=== PATIENT | male | born 1965 | race Caucasian/White ===

== ENCOUNTER 2018-07-14 13:10 | Outpatient (REF) | payer OTHER, SELFPAY ==
[2018-07-14 21:25] LABS: Anion Gap 9.7 mmol/L (3-11); BUN 21 mg/dL (7-18); CO2 28.3 mmol/L (21.0-32.0); CREATININE 0.96 mg/dL (0.70-1.30); Calcium 9.2 mg/dL (8.5-10.1); Chloride 105 mmol/L (98-107); Glucose 106 mg/dL (70-100); Potassium 4.3 mmol/L (3.5-5.1); Sodium 143 mmol/L (136-145)
== END 2018-07-14 13:30 ==
LOC: NCHCN 13:10
PROVIDERS: PCP Internal Medicine; Visit Provider Internal Medicine
DX: I10 Essential (primary) hypertension (principal)
CPT/HCPCS: 80048

== ENCOUNTER 2019-02-06 10:15 | Outpatient (REF) | payer OTHER, SELFPAY ==
[2019-02-06 20:28] LABS: Anion Gap 7.1 mmol/L (3-11); BUN 16 mg/dL (7-18); CO2 30.9 mmol/L (21.0-32.0); CREATININE 0.89 mg/dL (0.70-1.30); Calcium 8.8 mg/dL (8.5-10.1); Chloride 102 mmol/L (98-107); Glucose 113 mg/dL (70-100); Potassium 3.6 mmol/L (3.5-5.1); Sodium 140 mmol/L (136-145)
== END 2019-02-06 10:35 ==
LOC: NCHCN 10:15
PROVIDERS: PCP Internal Medicine; Visit Provider Internal Medicine
DX: I10 Essential (primary) hypertension (principal)
CPT/HCPCS: 80048

== ENCOUNTER 2020-04-29 13:24 | Outpatient (REF) | payer BC, SELFPAY ==
[2020-04-29 21:39] LABS: ALT 53 U/L (16-63); AST 29 U/L (15-37); Alkaline Phosphatase 80 U/L (46-116); Anion Gap 7.2 mmol/L (3-11); BUN 20 mg/dL (7-18); Bilirubin, Total 1.1 mg/dL (0.2-1.0); CO2 26.8 mmol/L (21.0-32.0); CREATININE 0.94 mg/dL (0.70-1.30); Calcium 8.9 mg/dL (8.5-10.1); Calculated LDL 138 mg/dL (<100); Chloride 101 mmol/L (98-107); Cholesterol 197 mg/dL (<200); Glucose 123 mg/dL (74-106); HDL Cholesterol 36 mg/dL (40-60); Potassium 3.7 mmol/L (3.5-5.1); Sodium 135 mmol/L (136-145); Total Protein 7.1 g/dL (6.4-8.2); Triglyceride 115 mg/dL (<150)
== END 2020-04-29 13:44 ==
LOC: NCHCN 13:24
PROVIDERS: PCP Internal Medicine; Visit Provider Internal Medicine
DX: I10 Essential (primary) hypertension (principal); Z13.220 Encounter for screening for lipoid disorders; E66.9 Obesity, unspecified
CPT/HCPCS: 80053; 80061

== ENCOUNTER 2021-03-28 08:09 | Outpatient (REF) | payer MEDICAID, SELFPAY ==
[2021-03-28 13:51] LABS: ALT 45 U/L (16-63); AST 26 U/L (15-37); Albumin 3.8 g/dL (3.4-5.0); Alkaline Phosphatase 96 U/L (46-116); Anion Gap 11.5 mmol/L (3-11); BUN 15 mg/dL (7-18); Bilirubin, Total 0.6 mg/dL (0.2-1.0); CO2 25.5 mmol/L (21.0-32.0); Calcium 8.4 mg/dL (8.5-10.1); Calculated LDL 138 mg/dL (<100); Chloride 105 mmol/L (98-107); Cholesterol 207 mg/dL (<200); Glucose 118 mg/dL (74-106); HDL Cholesterol 32 mg/dL (40-60); Potassium 3.7 mmol/L (3.5-5.1); Sodium 142 mmol/L (136-145); Total Protein 6.9 g/dL (6.4-8.2); Triglyceride 187 mg/dL (<150)
[2021-03-28 14:57] LABS: Hemoglobin A1C 5.7 % (<5.7)
== END 2021-03-28 08:10 | disposition home or self-care (01) ==
LOC: NCHCN 08:09
PROVIDERS: PCP Internal Medicine; Visit Provider Internal Medicine
DX: R73.03 Prediabetes (principal); I10 Essential (primary) hypertension; E78.5 Hyperlipidemia, unspecified
CPT/HCPCS: 80053; 80061; 83036

== ENCOUNTER 2021-06-07 01:59 | Outpatient (CLI) | payer MEDICAID, SELFPAY ==
[2021-06-07 21:44] LABS: COVID-19 RT-PCR UVMMC Result Negative (Negative)
== END 2021-06-07 02:00 | disposition home or self-care (01) ==
PROVIDERS: PCP Internal Medicine; Visit Provider Internal Medicine
DX: Z20.822 Contact with and (suspected) exposure to COVID-19 (principal)
CPT/HCPCS: U0003

== ENCOUNTER 2021-10-05 18:07 | Emergency (ER) | payer MEDICAID, SELFPAY ==
[2021-10-05 18:10] VITALS: BP 143/83; PULSE 77; RESP 23; TEMP 37.1; O2SAT 98
--- NOTE | 2021-10-05 18:15 | DI.CT_ITS ---
Exam(s) CT ABDOMEN PELVIS W EXAM: CT ABDOMEN PELVIS W CLINICAL HISTORY: left lower quadrant pain TECHNIQUE: Imaging Protocol: Axial computed tomography images with coronal and sagittal reformatted images were created and reviewed CONTRAST MATERIAL: Intravenous: Omnipaque 350 Contrast volume:100 mL Oral: No COMPARISON: No exams were available for comparison FINDINGS: ABDOMEN: Lung Bases: Normal where visualized. Liver: There is diffuse decreased attenuation of the liver suggesting fatty infiltration. No measura ble mass. Portal, Superior Mesenteric, and Splenic Veins: Unremarkable. Gallbladder and Biliary Tract: No radiodense calculus or dilation. Pancreas: Normal density, no abnormal calcifications or inflammatory process. Spleen: Normal. Adrenals: No masses seen. Kidneys: Normal size, contour and axis. There is a 4 mm stone at the left UVJ with mild hydronephrosi s. No masses seen. Abdominal Aorta: Abdominal portion non-dilated. Atherosclerosis. Bowel: No obstruction or bowel wall thickening. No evidence of appendicitis. Peritoneal Cavity: No ascites, collection or mesenteric inflammatory response. No free air. Lymph Nodes: Within normal limits. Bones: Within normal limits for the patient's age. Soft Tissues: Bilateral fat containing inguinal hernia are present. PELVIS: Bladder: Symmetric distention, no gross wall thickening. Reproductive Organs: Unremarkable as visualized. Lymph Nodes: Within normal limits. Bones: Within normal limits for the patient's age. IMPRESSION: There is a 4 mm left UVJ stone causing mild hydronephrosis and hydroureter. RADIATION DOSE DELIVERED: 1,517.98mGy.cm Total DLP DATA REPOSITORY: All CT scans at this facility are submitted to the National Radiology Data Registry (NRDR) Dose Index Registry (DIR) with the [employer] (A[employer]). RADIATION OPTIMIZATION: All CT scans at this facility use at least one of these dose optimization te chniques: automated exposure control; mA and/or kV adjustment per patient size (includes targeted exa ms where dose is matched to clinical indication); or iterative reconstruction.
--- NOTE | 2021-10-05 18:23 | ED.GENADUL_ITS ---
Discharge Plan Disposition Patient Disposition: HOME Condition: Improving Discharge Details Clinical Impression: Left ureteral stone Primary Care Provider: Edi Pemberton ED Provider: Silvreio Shane Home Meds and New Rx's Prescriptions: New tamsulosin 0.4 mg capsule 0.4 mg PO QHS Qty: 10 RF: 0 Continued OxyContin 10 MG tablet extended release 12 hr 10 mg PO BID RF: 0 amlodipine 10 mg Tablet 10 mg PO DAILY RF: 0 escitalopram oxalate 10 mg Tablet 10 mg PO DAILY RF: 0 calcium carb-D3-mag ox-zinc ox 333 mg-133 unit -133 mg-5 mg Tablet 1 tab PO DAILY RF: 0 niacin 500 mg Capsule 500 mg PO DAILY RF: 0 turmeric 400 mg Capsule 400 mg PO BID RF: 0 omega 2-sax-nqu-fish oil 650 mg-240 mg- 360 mg-1,000 mg Capsule,Delayed Release(Dr/Ec) 1 cap PO DAILY RF: 0 Discharge Instructions Instructions: Ureteral Stones (ED) Additional Instructions: Small distal stone which should pass on its own. Take Tylenol 1 gram every 6 hours and use oxycodone for breakthrough pain. Contact you prescriber/pain management to discuss needing extra dosing. Retrun to ED for fever, uncont rolled pain, persistent vomiting. Follow up with urology next week if no passage of stone over the weekend. Referrals: [facility] [Provider Group] Medical Decision Making <Pj Recinos MD - Last Filed: 10/05/21 18:28> 56 yo male with complex regional pain syndrome on oxycodone daily and states a p rior history years ago of kidney stones comes in with ems with left lower oblique/abdominal pain that started around 1pm today while he was making potato salad. He has had nausea and dry heaves as well. He denies fevers, chest pain, dyspnea, headaches. HE has no scrotal swelling or tenderness. He has no cva tenderness, does have tenderness with palpation to the left lower abdomen, no other abodminal tenderness. Concern for diverticulitis vs kidney stone, will obtain labs including cbc, cmp, lipase and obtain ct to further evaluate Differential Diagnosis Differential Diagnosis: kidney stone, diverticulitis, muscle spasm <Silverio Shane MD - Last Filed: 10/05/21 22:52> Patient signed out to me pending CT scan. Laboratory studies unremarkable except for urine with greater than [address] scan confirms distal ureteral stone. There is some hydroureter/hydronephrosis. Stone is 3 x 3 and should pass based on size. Will start on Flomax. Patient does not tolerate nonsteroidals. Recommend acetaminophen every 6 hours with use of his chronic oxycodone. He has a narcotic contract and I have asked him to contact that provider in the morning to discuss possibility of decreasing time interval as he is only supposed to be taking oxycodone twice a day. Because of the contract I will not prescribe any narcotics and discussed this with the patient. Will refer patient to urology for follow-up per his and his request. Return to ED for fever, uncontrolled pain, persistent vomiting, other concerns. Lab Data Lab results reviewed: Yes I reviewed the patient's lab results. HPI <Pj Recinos MD - Last Filed: 10/05/21 18:28> General Mode of arrival: EMS . Date/Time Provider Initiated Documentation: 10/05/21 18:07 . Limitations to Documentation: no limitations . Information obtained by: patient . History of Present Illness 56 year old M presents to the emergency department with the chief complaint of left flank/abdomen pain, described as moderate, Quality is described as stabbing, and is localized to the abdomen. Patient reports no radiation. Patient started experiencing this hour(s) (4) and it has been constant. No relieving factors improve symptom(s), No exacerbating factors reported . Patient notes nausea/vomiting. Patient did receive the following treatments prior to arrival, none Related Data Home Medications Medication Instructions Recorded Confirmed OxyContin 10 mg PO BID 11/29/14 10/05/21 amlodipine 10 mg PO DAILY 10/05/21 10/05/21 calcium carb-D3-mag ox-zinc ox 1 tab PO DAILY 10/05/21 10/05/21 escitalopram oxalate 10 mg PO DAILY 10/05/21 10/05/21 niacin 500 mg PO DAILY 10/05/21 10/05/21 omega 9-vwt-znx-fish oil 1 cap PO DAILY 10/05/21 10/05/21 tamsulosin 0.4 mg PO QHS #10 cap 10/05/21 turmeric 400 mg PO BID 10/05/21 10/05/21 Previous Rx's Medication Instructions Recorded tamsulosin 0.4 mg PO QHS #10 cap 10/05/21 Allergies Allergy/AdvReac Type Severity Reaction Status Date / Time venom-wasp [Wasp Venom] Allergy Intermediate Unverified 10/05/21 18:17 gabapentin [From Neurontin] Allergy Mild Skin Rash Unverified 10/05/21 18:17 pregabalin [From Lyrica] Allergy Mild Agitation Unverified 10/05/21 18:17 naproxen [From Naprosyn] AdvReac Mild Unverified 10/05/21 18:17 amitryptiline Allergy Intermediate Agitation Uncoded 10/05/21 18:17 fentanyl Allergy Intermediate hallucinati Uncoded 10/05/21 18:17 ons General Stated Complaint: FlankPain MARIE: 3 Review of Systems <Pj Recinos MD - Last Filed: 10/05/21 18:28> All systems reviewed & are unremarkable except as noted in HPI and below Constitutional Constitutional: Denies chills, Denies fever(s) and Denies weakness Cardiovascular Cardiovascular: Denies chest pain and Denies dyspnea Respiratory Respiratory: Denies cough and Denies dyspnea Neurologic Neurologic: Denies weakness PFSH <Pj Recinos MD - Last Filed: 10/05/21 18:28> All Active Problems (Updated 10/05/21 @ 20:51 by Silverio Shane MD) Left ureteral stone (Acute) Social History Smoking/Tobacco Use Status: Former Tobacco Use Smoking risk assessment performed?: Yes Alcohol Intake: current Alcohol Intake frequency: a few times a month Alcohol type: beer Drug use: Daily Substance use type: marijuana Do you feel safe at home: Yes Do you feel safe in your relationship?: Yes Exam <Pj Recinos MD - Last Filed: 10/05/21 18:28> Const General: no acute distress Orientation: alert [facility] Head: normal to inspection Ears: external ears normal General nose exam: external nose normal Mouth: moist mucous membranes Eyes General: appearance normal, both eyes and all related structures Neck Neck: normal visual inspection Resp Effort & Inspection: normal respiratory effort and able to speak in complete sentences Cardio Rate: regular rate GI Palpation: soft and tender Back/Spine/Pelvis Back: no CVA tenderness Skin General skin exam: no rashes or lesions noted Neuro General: patient alert and patient oriented x3 Extrem General: normal to inspection Psych Mental Status: mental status grossly normal Course <Pj Recinos MD - Last Filed: 10/05/21 18:28> Vital Signs Vital signs: Vital Signs Temperature 37.1 C 10/05/21 18:10 Pulse 77 10/05/21 18:10 Respiratory Rate 23 10/05/21 18:10 Blood Pressure 143/83 H 10/05/21 18:10 Pulse Oximetry 98 10/05/21 18:10 Temperature 37.1 C 10/05/21 18:10 Temperature Source Temporal Artery Scan 10/05/21 18:10 Pulse 77 10/05/21 18:10 Respiratory Rate 23 10/05/21 18:10 Respiratory Effort 10/05/21 18:14 Blood Pressure 143/83 H 10/05/21 18:10 Blood Pressure Position Supine 10/05/21 18:10 Pulse Oximetry 98 10/05/21 18:10 Oxygen Delivery Method Room Air 10/05/21 18:10 Oxygen Flow Rate 0 10/05/21 18:10 Pain Level 8 10/05/21 18:10 Sign Out <Pj Recinos MD - Last Filed: 10/05/21 18:28> Sign Out Data: Sign Out Comment: left lower abdomen/oblique pain, pending CT scan results and reassessment Last updated by Pj Recinos MD at 10/05/21 19:05 PAWSS <Pj Recinos MD - Last Filed: 10/05/21 18:28> Have you Been Recently Intoxicated or Drunk Within the Last 30 days?: No Have you Ever Experienced Previous Episodes of Alcohol Withdrawal?: No Have you ever Experienced Withdrawal Seizures?: No Have you ever Experienced Delirium Tremens(DT)s?: No Have you ever undergone Alcohol Rehabilitation Treatment (i.e, inpt ot outpatient treatment programs)?: No Have you ever Experienced Blackouts?: No Have you ever Combined Alcohol with other Downers within the last 90 days?: No Have you ever Combined Alcohol with any other Substance of Abuse during the last 90 days?: No Positive Blood Alcohol level on Presentation? [PCS.BAL]: No Evidence of Increased Autonomic Activity (i.e. HR>120, tremor, sweating, agitation, nausea)?: No Result: 0
[2021-10-05 18:24] LABS: Abs Immature Grans 0.03 10^3/uL (0.0-0.06); Absolute Basophil Count 0.05 10^3/uL (0.0-0.2); Absolute Eosinophil Count 0.05 10^3/uL (0.0-0.7); Absolute Lymphocyte Count 1.16 10^3/uL (1.2-3.4); Absolute Monocyte Count 0.55 10^3/uL (0.1-0.8); Absolute Neutrophil Count 8.35 10^3/uL (1.2-6.7); Basophils % 0.5; Eosinophils % 0.5; HCT 44.6 % (40.0-50.0); HGB 15.5 g/dL (13.5-17.5); Immature Grans % 0.3; Lymphocytes % 11.4; MCH 30.9 pg (27.0-33.0); MCHC 34.8 % (32.0-36.0); MCV 88.8 fL (80-95); MPV 9.6 fL (8.0-11.0); Monocytes % 5.4; Neutrophils % 81.9; Nucleated RBC 0 %; Platelet Count 199 10^3/uL (130-400); RBC 5.02 10^6/uL (4.36-5.78); RDW 11.9 % (11.8-14.1); RDW-SD 38.6 fL; WBC 10.19 10^3/uL (4.4-10.8)
[2021-10-05] MEDS: Normal Saline 1,000 ML 1000 ML IV (18:25)
[2021-10-05 18:36] LABS: ALT 38 U/L (16-63); AST 19 U/L (15-37); Albumin 3.9 g/dL (3.4-5.0); Alkaline Phosphatase 84 U/L (46-116); Anion Gap 10.4 mmol/L (3-11); BUN 20 mg/dL (7-18); Bilirubin, Direct 0.1 mg/dL (0.0-0.2); Bilirubin, Total 0.4 mg/dL (0.2-1.0); CO2 26.6 mmol/L (21.0-32.0); CREATININE 1.3 mg/dL (0.70-1.30); Calcium 8.7 mg/dL (8.5-10.1); Chloride 102 mmol/L (98-107); Estimated GFR 57.31 (mL/min/1.73m2); Glucose 162 mg/dL (74-106); Lipase 51 U/L (73-393); Magnesium 2.1 mg/dL (1.8-2.4); Potassium 3.4 mmol/L (3.5-5.1); Sodium 139 mmol/L (136-145); Total Protein 7.2 g/dL (6.4-8.2)
[2021-10-05] MEDS: HYDROmorphone 2 MG/ML VIAL 1 MG IVP ×2 (18:53→21:02)
[2021-10-05 19:06] LABS: Bilirubin Negative (Negative); Blood Large (Negative); Clarity Sl Cloudy (Clear); Glucose Negative (Negative); Ketones Negative (Negative); Leukocyte Esterase Negative (Negative); Nitrite Negative (Negative); Urobilinogen 0.2 EU/dL (Up TO 0.2)
[2021-10-05 19:12] LABS: Bacteria Negative HPF (Negative); C & S Indicated? No; Casts Negative LPF (Negative); Crystals Negative HPF (Negative); Epithelial Cells Few HPF (Negative); Mucus Negative (Negative); RBC >50 HPF (0-2); WBC 0-2 HPF (0-5)
[2021-10-05 19:18] LABS: Source Nasal/Nares
[2021-10-05] MEDS: Omnipaque 350 MG/ML 100 ML BTL IJ (19:36)
[2021-10-05 20:09] LABS: COVID-19 PCR Negative (Negative)
--- NOTE | 2021-10-05 20:38 | DI.VRAD_ITS ---
PROCEDURE INFORMATION: Exam: CT Abdomen And Pelvis With Contrast Exam date and time: 10/05/2021 6:23 PM Age: 56 years old Clinical indication: Other: Llq pain TECHNIQUE: Imaging protocol: Computed tomography of the abdomen and pelvis with contrast. COMPARISON: No relevant prior studies available. FINDINGS: Liver: Normal. No mass. Gallbladder and bile ducts: Normal. No calcified stones. No ductal dilation. Pancreas: The pancreas is mildly atrophic, but otherwise appears unremarkable without focal lesion or evidence of acute inflammation. Spleen: Normal. No splenomegaly. Adrenal glands: There is diffuse bilateral nonspecific mild adrenal enlargement, suggesting hyperplasia. Kidneys and ureters: There is a 3 x 3 x 2 mm distal left ureteral stone in the region of the left ureterovesical junction, as seen on image 83, series 4 as well as coronal image 91, series 6. There is mild proximal left hydroureter and left hydronephrosis. There is mild asymmetric fluid stranding around the left kidney. Stomach and bowel: There is no evidence of small or large bowel inflammation. There is no evidence for bowel obstruction. Appendix: No evidence of appendicitis. Intraperitoneal space: Unremarkable. No free air. No significant fluid collection. Vasculature: The aorta and iliac arteries demonstrate mild atherosclerotic calcification without aneurysm formation. Lymph nodes: Unremarkable. No enlarged lymph nodes. Urinary bladder: No bladder stones are identified. Reproductive: Unremarkable as visualized. Bones/joints: There is moderate facet arthrosis at L4-L5. There is multilevel mild spondylosis of the lower thoracic and lumbar spine. No acute fractures are identified. Soft tissues: There are fat containing bilateral inguinal hernias, left greater than right, with the left hernia extending into the superior aspect of the left scrotum, only partially imaged. The left hernia measures up to 3.1 x 6.8 x 10 cm. IMPRESSION: 1. Obstructing 3 x 3 x 2 mm distal left ureteral stone residing in the region of the left ureterovesical junction, with associated mild proximal left hydroureter and left hydronephrosis. 2. Bilateral fat containing inguinal hernias. Dictated and Authenticated by: Howie Ortiz MD. Ordering:GERARD Oliva MD
[2021-10-05] MEDS: Tamsulosin 0.4 MG CAPCR PO (21:02)
--- NOTE | 2021-10-06 08:12 | NUR.NOTE ---
negative covid result relayed to pt via phone. Nursing Note:
== END 2021-10-05 21:00 | disposition home or self-care (01) ==
PROVIDERS: Emergency Medicine; Emergency Provider Emergency Medicine; PCP Internal Medicine
DX: N20.1 Calculus of ureter (principal); Z87.442 Personal history of urinary calculi
CPT/HCPCS: 36415; 80053; 83690; 87635; 96374; 96376; 99285; 74177; 81003; 81015; 82248; 83735; 85025; 99284; J3490

== ENCOUNTER 2021-11-03 11:47 | Outpatient (REF) | payer MEDICAID, SELFPAY ==
--- OUTSIDE RECORDS SUMMARY | 2021-11-03 11:49 | XMS_ITS ---
:1965 External Reference #:[id number] Author Care Team Providers Name Role Phone [facility] Primary Care Provider Unavailable Allergies Code Code System Name Reaction Severity Status Onset 704 RxNorm Amitriptyline ? ? Active ? 4337 RxNorm Fentanyl ? ? Active ? 01987 RxNorm Gabapentin ? ? Active ? 6130 RxNorm Ketamine ? ? Active ? 151176 RxNorm Lyrica Other ? Active ? 850063 RxNorm Venom-honey Bee ? ? Active ? Medications Name Status Start Date Stop Date ? ? aspirin Active ? Not available 81mg atenolol 25 mg tablet Active ? Not availa ble Take 1 tablet every day by oral route. oxycodone 10 mg tablet Active ? Not avail able Take 1 tablet every 4 hours by oral route. OxyContin 10 mg tablet,crush Active ? Not available resistant,extended release Problems None recorded. Procedures None recorded. Results Lab Results None recorded. Past Encounters None recorded. Social History None recorded. Vaccine List None recorded. Plan of Care Reminders Provider Appointments None ? ? recorded. Lab None ? ? recorded. Referral None ? ? recorded. Procedures None ? ? recorded. Surgeries None ? ? recorded. Imaging None ? ? recorded. Vitals 09/04/2016 09:15AM ESTABLISHED PATIENT 46 Height Weight BMI Blood Pressure 5 ft 8 in 225 lbs 12.8 oz 34.3 kg/m2 146/90 mm[Hg] 07/19/2016 09:00AM ESTABLISHED PATIENT 30 Height Weight BMI 5 ft 8 in 227 lbs 34.5 kg/m2 05/08/2016 02:00PM ESTABLISHED PATIENT 46 Weight Blood Pressure 226 lbs 130/82 mm[Hg] 03/23/2016 03:00PM ESTABLISHED PATIENT 30 Weight Blood Pressure 232 lbs 130/90 mm[Hg] 02/02/2016 09:00AM ESTABLISHED PATIENT 61 Weight Blood Pressure 239 lbs 130/90 mm[Hg] 01/05/2016 04:30PM NEW PATIENT 89 Weight Blood Pressure 241 lbs 16 oz 130/100 mm[Hg]
[2021-11-03 12:51] LABS: Creatinine,Urine 75.51 mg/dL; Sodium, Urine 33 mmol/L
[2021-11-03 12:53] LABS: CLEAVED CELLS 99 mmol/24h (40-220); Creatinine,24hr Ur 2.27 g/24hr (0.95-2.49); Total Volume 3000 ml
[2021-11-04 08:57] LABS: Timed Urine Volume 3000 mL; Uric Acid Urine 27.5 mg/dL (See Note); Uric Acid Urine 24hr 825 mg/24hrs (250-750)
[2021-11-04 08:59] LABS: Magnesium Random Urine 10.6 mg/dL (See Note); Timed Urine Volume 3000 mL
[2021-11-04 09:09] LABS: Calcium Urine 19.3 mg/dL (See Note); Calcium Urine 24 hr 579 mg/24hrs (100-300); Timed Urine Volume 3000 mL
[2021-11-04 16:01] LABS: Oxalate, U 0.33 mmol/24 h (0.11-0.46); Urine Volume 3000 mL
[2021-11-08 01:29] LABS: Citric Acid, 24hr Urine 507 mg/24 h (100-1300); Citric Acid/Creat Ratio 221 mg/g creat (60-660); Total Volume 3000 mL
== END 2021-11-03 11:48 | disposition home or self-care (01) ==
LOC: LBN 11:47
PROVIDERS: PCP Internal Medicine; Visit Provider Urology
DX: N20.1 Calculus of ureter (principal)
CPT/HCPCS: 82507; 83735; 81050; 82340; 82570; 83945; 84300; 84560

== ENCOUNTER 2022-01-15 02:37 | Outpatient (CLI) | payer MEDICAID, SELFPAY ==
[2022-01-15 10:42] LABS: Source Nasal/Nares
[2022-01-15 13:07] LABS: COVID-19 PCR Negative (Negative)
== END 2022-01-15 02:38 | disposition home or self-care (01) ==
LOC: LBO 02:37
PROVIDERS: PCP Internal Medicine; Visit Provider Surgery
DX: Z20.822 Contact with and (suspected) exposure to COVID-19 (principal); Z01.818 Encounter for other preprocedural examination
CPT/HCPCS: 87635

== ENCOUNTER 2022-01-16 07:10 | Day surgery (SDC) | payer MEDICAID, SELFPAY ==
--- NOTE | 2022-01-15 18:30 | W.PM.DSUDISC ---
Discharge Plan Disposition Patient Disposition: HOME Condition: Good Discharge Details Reason For Visit: right inguinal hernia repair Attending Provider: Tomasa Jefferson Primary Care Provider: Hermelinda Chapman Home Meds and New Rx's Prescriptions: New oxycodone 5 mg tablet 5 mg PO Q6H PRN (Reason: pain (scale score 7-10)) Qty: 14 0RF Continued allopurinol 300 mg tablet 300 mg PO DAILY Qty: 90 4RF OxyContin 10 MG tablet extended release 12 hr 10 mg PO BID 0RF amlodipine 10 mg Tablet 10 mg PO DAILY 0RF escitalopram oxalate 10 mg Tablet 10 mg PO DAILY 0RF calcium carb-D3-mag ox-zinc ox 333 mg-133 unit -133 mg-5 mg Tablet 1 tab PO DAILY 0RF niacin 500 mg Capsule 500 mg PO DAILY 0RF turmeric 400 mg Capsule 400 mg PO BID 0RF omega 4-tpo-jqp-fish oil 650 mg-240 mg- 360 mg-1,000 mg Capsule,Delayed Release(Dr/Ec) 1 cap PO DAILY 0RF Discharge Instructions Additional Instructions: Dr. Jefferson HERNIA REPAIR ? POSTOPERATIVE INSTRUCTIONS Patients who have this type of surgery can usually be expected to return to work within two weeks and have minimal amounts of discomfort. ? ACTIVITY: The day of surgery should be spent resting. However, you can be up for short periods of time, I.E., going to the bathroom or kitchen. Avoid lifting or straining. On the day following surgery, you can be up and about as desired. ? LIFTING: Restrict your lifting to no more than five (5) pounds for the first week following surgery. For the second week after surgery, don?t lift more than ten pounds.? We will decide when you are done with restrictions and when you can return to work, at your follow-up appointment.? No sexual activity for two weeks.? ? DIET: There are no dietary restrictions following surgery. However, you may want to start with small amounts of liquids to avoid nausea the day of surgery. ? INCISION CARE: You will notice purple skin glue closing the incision.? Do not peel this off- it will wear off on its own.? After 24 hours you may shower. The dressing may be replaced for comfort, but is not necessary. ?An ice bag may be applied to the incision for 72 hours following surgery. ? SIGNS OF INFECTION: It is not unusual to have some black and blue discoloration of the skin around the incision, but also scrotum and penis.? ?It will slowly disappear. If you have any increased redness, drainage, fever (above 100 degrees), please contact your doctor for an examination. ? DISCOMFORT: You may expect to have some mild discomfort at the incision sight. If severe pain develops you should contact your doctor for further instructions. ? URINATION: Patients who have surgery occasionally have problems urinating. If you experience problems and are not able to urinate within 6 hours following your surgery, please call your doctor immediately or go to your nearest Emergency Room for evaluation. ? DRIVING: NO driving for three (3) days after surgery, or if you are still taking narcotic pain medication.? ? MEDICATIONS: Alternate Tylenol 1000mg by mouth every 8 hours and Ibuprofen 600mg every 6 hours. ?Make sure you take ibuprofen with food and not on an empty stomach. ?Take the Tylenol and ibuprofen continuously for the first 72hrs- not just when you have pain.? Use the tramadol for breakthrough pain.? Use ICE!?? Twenty minutes on, and then off, continuously for the first 72hours. If you are taking narcotic pain medication, follow the instructions on the label and do not drive. Pain medications can make you very constipated. Make sure you are moving your bowels daily. If not, take Miralax, milk of magnesia or magnesium citrate.?? Anesthesia makes you very constipated.? Take a dose of milk of magnesia the morning after surgery. ? REPORT: Unusual swelling, severe pain, unresolved nausea, signs of infection, or difficulty in urination to your surgeon. Follow up in clinic with Dr. Jefferson in 2 weeks.? [phone] ? ? Activity:: see above Remove Dressings/Wound Care:: 24 hours Shower/Bathe:: 24 hours Diet:: As Tolerated Discharge Orders Discharge Orders: Discharge Order (Routine); Ordered 01/15/22 Ordered By: Tomasa Jefferson
--- NOTE | 2022-01-15 18:32 | W.PM.OP ---
Date of service: 01/16/22 Time of Service: 17:08 Operative Note Operative Note DATE OF PROCEDURE: 01/16/22 PRE-OP DIAGNOSIS: right inguinal hernia POST-OP DIAGNOSIS: other (direct/indirect ) PROCEDURE: direct/indirect repair SURGEON: Tomasa Ballesteros SENIOR MATERIALS PLANNER: Mandy Bennett ANESTHESIA TYPE: Local By Surgeon, General:No Airway and Primary Nerve Block Refer to Anesthesia Record ESTIMATED BLOOD LOSS: 5 PATHOLOGY: none sent COMPLICATIONS: None Patient was transported to: PACU Patient's condition: stable Procedure Description: INDICATIONS: The pt is here today for surgery regarding symptomatic --- inguinal hernia that has failed outpatient conservative medical management and he is here today for repair. Informed consent was obtained, explaining risks and benefits of the procedure including but not limited to bleeding, infection, pneumonia, blood clots, chronic pain, chronic numbness, damage to testicle resulting in removal, recurrence of hernia, reaction to Mesh necessitating removal, and other unforetold complications, and complications of anesthesia-which were addressed by the CURRICULUM ASSISTANT PRINCIPAL. The patient is marked in preOp prior to the procedure. Patient has chronic history of complex regional pain syndrome in the right lower extremity. This started after a fracture to his foot. He already has chronic pain in the right lower extremity. We did discuss pain and pain cycle. He is definitely at risk for developing chronic pain in the right groin. He is having difficulty moving his bowels and the hernia currently interferes with his activities of daily living. He is on chronic narcotics and uses chronic THC products for pain control at baseline. He has intolerances to many of them, and pain control adjuvants. DESCRIPTION OF PROCEDURE:? The pt is then brought to the operative room suite. Anesthesia was administered per the Department of Anesthesia. ?A nerve block was performed by anesthesia under US guidance. The patient was prepped and draped in the usual sterile fashion using ChloraPrep scrub solution. Pause for the cause was done. He did receive preop IV antibiotics, and 30 mL of .25% Marcaine w/ epinephrine was used for local anesthetization. A #12 blade was used to make an incision over the external ring. Electrocautery used to provide hemostasis and dissect down to the fascia. The fascia was pretty much obliterated and there was nothing to open. The cord is elevated. The nerve was identified and cauterized. . There large is a cord lipomas. The lipoma is tied off with 0 Vicryl tie and returned to the abdomen. Electro-cautery is used to provide hemostasis. A Blue Diamond drain was placed around the cord to assist in mobilization. The cord was explored. ?There was no hernia sac on the cord. There is a small direct hernia pushing through the floor.? The transversalis in this area is pretty much obliterated. The sac is elevated and scored and inverted. A Xsmall mesh plug was then placed into the defect and oversewn into transversalis. Electrocautery is used to provide hemostasis.?? ? A lg size plug is than inserted into the defect through the internal ring, and over sewn to tighten up the ring with 2-0 vicryl.? Please see RN notes from Lot number of the [employer] mesh patch/plug.? The cord structures are still able to freely move through the ring itself.? The patch was then placed onto the floor, and using 2-0 Vicryl, sewn into the pubic tubercle and the shelving portions of the inguinal ligament, in the standard Lichenstein fashion.? ?The tails of the mesh are brought around the cord, sewn together w/ 2-0 Vicryl, and tucked under the external oblique.? The wound was copiously irrigated. There was no bleeding noted. The drain was removed. All structures are returned to normal anatomical position. The nerve is not sewn into the mesh, nor caught up in any sutures. The external oblique is re-approximated using 2-0 vicryl in a running fashion. ?Deep tissue was approximated with 3-0 Vicryl in a running fashion, and skin was approximated with 4-0 Monocryl in a running subcuticular fashion. Skin glue and sterile dressings are applied. The patient tolerated the procedure without complications to recovery in stable condition. TOMASA BALLESTEROS, DO ?
[2022-01-16] VITALS (10 sets, daily range): BP systolic 84–125; BP diastolic 57–91; PULSE 59–67; RESP 13–18; TEMP 36–36.4; O2SAT 94–97; BMI 36.1
[2022-01-16] MEDS: Lactated Ringers 1,000 ML 80 ML IV (07:52)
[2022-01-16] MEDS: Acetaminophen 500 MG TAB 1000 MG PO (07:59)
--- NOTE | 2022-01-16 08:14 | W.ANESPRE ---
General Info Date of Service Date Performed: 01/16/22 Height: 5 ft 9 in Weight: 110.847 kg Body Mass Index (BMI): 36.1 Surgical Procedure: Operation Date: 01/16/22 08:40 Proposed Procedure Side Surgeon p Herniorrhaphy Inguinal RT w/Mesh Right Tomasa Jefferson, Meds Allergies and Home Medications Allergies Allergy/AdvReac Type Severity Reaction Status Date / Time duloxetine [From Cymbalta] Allergy Severe Agitation Unverified 01/16/22 07:21 tamsulosin Allergy Intermediate Other (See Unverified 01/16/22 07:21 Comment) venom-wasp [Wasp Venom] Allergy Intermediate Other (See Unverified 01/16/22 07:21 Comment) gabapentin [From Neurontin] Allergy Mild Skin Rash Unverified 01/16/22 07:21 pregabalin [From Lyrica] Allergy Mild Agitation Unverified 01/16/22 07:21 naproxen [From Naprosyn] AdvReac Mild Other (See Unverified 01/16/22 07:21 Comment) amitryptiline Allergy Intermediate Agitation Uncoded 01/16/22 07:21 fentanyl Allergy Intermediate hallucinati Uncoded 01/16/22 07:21 ons Home Medication Medication Instructions Recorded oxycodone 10 mg tablet,extended 10 mg PO BID 11/29/14 release,12 hr (OxyContin) amlodipine 10 mg tablet 10 mg PO DAILY 10/05/21 calcium carb 333 mg-vit D3 133 1 tab PO DAILY 10/05/21 unit-mag ox 133 mg-zinc oxide 5 mg tab escitalopram oxalate 10 mg tablet 10 mg PO DAILY 10/05/21 niacin 500 mg capsule 500 mg PO DAILY 10/05/21 omega 3 650 mg-dha 240 mg-epa 360 1 cap PO DAILY 10/05/21 mg-fish oil 1,000 mg capsule del rel turmeric 400 mg capsule 400 mg PO BID 10/05/21 allopurinol 300 mg tablet 300 mg PO DAILY #90 tab 11/17/21 Current Visit Medications: Current Medications Generic Name Dose Route Start Last Admin Trade Name Freq PRN Reason Stop Dose Admin Acetaminophen 1,000 mg 01/16/22 06:00 01/16/22 07:59 Acetaminophen 500 Mg Tab PO 01/16/22 23:59 1,000 mg PREOP EREN Administration Ringer's Solution 1,000 mls @ 80 mls/hr 01/16/22 06:00 01/16/22 07:52 IV 01/18/22 23:59 80 mls/hr INFUSION EREN Administration Cefazolin Sodium/Dextrose 2 gm in 50 mls @ 100 mls/hr 01/16/22 06:00 Ancef Duplex IVPB 01/16/22 23:59 PREOP EREN Ondansetron HCl 4 mg/ Sodium 52 mls @ 200 mls/hr 01/15/22 18:28 Chloride IVPB Q6H PRN PRN IV Miscellaneous Supplies 1 each 01/16/22 06:00 Iv Access IV 01/18/22 23:59 DIRECTED EREN Morphine Sulfate 2 mg 01/15/22 18:28 Morphine 4 Mg/Ml Syr IVP Q1H PRN PRN Sodium Chloride 0 ml 01/16/22 06:00 Normal Saline Flush 10 Ml Syr IV 01/18/22 23:59 PRN PRN Sodium Chloride 0 ml 01/16/22 06:00 Normal Saline 10 Ml Vial IJ 01/18/22 23:59 DIRECTED PRN Sterile Water 0 ml 01/16/22 06:00 Water,Injection,Sterile 10 Ml Vial IJ 01/18/22 23:59 DIRECTED PRN Tramadol HCl 50 mg 01/15/22 18:28 Tramadol 50 Mg Tab PO Q6H PRN PRN Pain PFSH Active Problems Active Problems: Problem Status Onset Code Hypercalciuria R82.994 Hyperuricosuria R82.993 Hypokalemia E87.6 Reducible right inguinal hernia K40.90 Medical History Medical History (Updated 01/16/22 @ 09:01 by Tomasa Jefferson DO) Chronic pain Concussion Per pt. stated he fell and slipped on ice Depression with anxiety Headache HLD (hyperlipidemia) Hypertension Insomnia Left ureteral stone Nephrolithiasis Nocturia Obesity Prediabetes Snoring Tobacco Smoking/Tobacco Use Status: Former Tobacco Use Alcohol Alcohol Intake: current Alcohol intake frequency: a few times a month Alcohol type: beer Substance Use Substance use: Daily Substance use type: marijuana Vital Signs and Lab Results Vital Signs Most Recent Vital Signs in EMR: Most Recent Vital Signs Temp Pulse Resp BP Pulse Ox 36.4 C L 67 16 125/91 H 97 01/16/22 07:29 01/16/22 07:29 01/16/22 07:29 01/16/22 07:29 01/16/22 07:29 Lab Results Blood Type / Crossmatch: No Data to Display Complete Blood Count: No Data to Display Complete Metabolic Panel: No Data to Display Liver Function Panel: No Data to Display Coagulation Panel: No Data to Display Cardiac Panel: No Data to Display Arterial Blood Gas: No Data to Display Venous Blood Gas: No Data to Display Pancreas Panel: No Data to Display Thyroid Panel: No Data to Display Infectious Disease: Coronavirus (COVID-19)(PCR) Negative (Negative) 01/15/22 08:30 01/15/22 Coronavirus 2019 Source Nasal/Nares 01/15/22 08:30 01/15/22 Blood Cultures: No Data to Display Toxicology Panel: No Data to Display Anesthesia Assessment and Plan Anesthesia History Personal History: No History of Anesthesia Complications Family History: No Family History of Anesthesia Complications Exercise Tolerance Exercise Tolerance: Metabolic Equivalents>4 Pertinent Negatives Pertinent Negatives: No Symptoms of GERD, No Major Cardiovascular Symptoms or Complaints and No Major Pulmonary Symptoms or Complaints Cardiac & Pulmonary Exam Cardiac Exam: Normal S1/S2 Heart Sounds Pulmonary Exam: Clear Bilateral Breath Sounds Implantable Cardiac Device Does patient have a Pacemaker or an ICD?: No Airway Exam Known Difficult Airway: No Mallampati Class: 2 Mouth Opening: Normal (> 3cm) Thyromental Distance: Greater than 3 cm Facial Hair: Full Soliz Neck Range of Motion: Full ROM Neck Circumference: Normal Teeth Condition: Normal Dentition ASA Classification ASA Score: ASA 2 Emergency Case?: No NPO Status NPO Status: NPO Clears >2 hours, Solids >8 hours Anesthesia Plan Resuscitation Status: Full Code Anesthesia Technique: General Anesthesia Airway Planned: Natural Airway Pain Management: Surgeon and patient request nerve block Monitors Used: Standard Monitors
--- NOTE | 2022-01-16 08:18 | NUR.NOTE ---
Nursing Note: Pt preferred to have his (who is a nurse and has worked in [employer] makeup operator care only) to do OR prep shaving. I advised what needed to be done and verified she had done an appropriate job. Right side shaved.
--- NOTE | 2022-01-16 08:41 | HPE_ITS ---
Date of service: 01/16/22 Time of Service: 08:41 Assessment and Plan Assessment and plan (1) Concussion: (2) Chronic pain: (3) Complex regional pain syndrome i of right lower limb: Status: Acute (4) HLD (hyperlipidemia): (5) Hypertension: (6) Insomnia: (7) Obesity: (8) Prediabetes: (9) Snoring: (10) Depression with anxiety: (11) Reducible right inguinal hernia: Status: Acute (12) Umbilical hernia: Status: Acute (13) Left inguinal hernia: Status: Acute Assessment and plan: Risks of the surgery include but are not limited to: Bleeding/infection/pneumonia/damage to blood vessels or bladder or? bowels/blood clots or PE/chronic pain/urinary retention/chronic numbness/reoccurrence/reaction to mesh requiring removal/damage to testicle or sterility/complications of anesthesia.? The pt will have a pre-Op PE to ensure fitness for anesthesia.? The procedure will be done with abx and? under sterile conditions.? The pt requires a ride home from surgery and someone to stay with the pt for 24 hrs after anesthesia.? No lifting over 5 pounds for 2 weeks after surgery. ? History of Present Illness Narrative: has area in his right groin that causes him pain, that increases with the more that I do. Pain level today 8/10. In ED w/ left sided kidney stones.? Has a hx of stones.? This has resolved.? No problems moving his bowels.? No tobacco.? daily THC.? No problems w/ anesthesia. He does have complex regional pain syndrome which started in his left foot following a foot fracture.? There is a high probability he develops chronic pain from the hernia.? He has pain on the right side now anytime he tries to do any heavy lifting or strenuous activity. He does have bilateral hernias and an umbilical hernia as well.? The umbilical hernia and the left hernia do not cause him any pain or discomfort.? We discussed bilateral versus unilateral repair and the pros and cons.? I am concerned with his RPS he may have chronic pain.? So for now we will just plan on repairing the right side.? He has pain in the hernia on the right. ? He is not had any problems with anesthesia in the past.? He does not get chest pain or shortness of breath with activity.? He does use THC daily for his RPS pt wishes to do the right side/symptomatic side only at this time to see how he fairs w/ surgery.? He does have a hx of CRPS, and is at risk for developing chronic pain pain from surgery. -THC daily I discussed the nature of inguinal hernias with the pt. I discussed the surgery in detail and the complications related to the surgery and the anesthesia. Pt. understands this, all questions were answered to the patient satisfaction and they signed the consent for surgery.? Patient was given an educational booklet. Risks of the surgery include but are not limited to: Bleeding/infection/pneumonia/damage to blood vessels or bladder or? bowels/blood clots or PE/chronic pain/urinary retention/chronic numbnes s/reoccurrence/reaction to mesh requiring removal/damage to testicle or sterility/complications of anesthesia.? The pt will have a pre-Op PE to ensure fitness for anesthesia.? The procedure will be done with abx and? under sterile conditions.? The pt requires a ride home from surgery and someone to stay with the pt for 24 hrs after anesthesia.? No lifting over 5 pounds for 2 weeks after surgery. I did discuss with the patient because of his complex regional pain syndrome that he has a high risk developing chronic groin pain. Also very important he does not do any heavy lifting or strenuous activity during his recovery. I discussed his postop shoes with his . He has been having problems moving his bowels and pain from hernia. He has a left inguinal hernia and an umbilical hernia that are asymptomatic at this time. We will see how he does pain cortes in the postop. And we are holding repair at this time. Review of Systems All systems reviewed & are unremarkable except as noted in HPI and below PFSH All Active Problems (Updated 01/16/22 @ 09:01 by Tomasa Jefferson DO) Left inguinal hernia (Acute) Umbilical hernia (Acute) Complex regional pain syndrome i of right lower limb (Acute) Hypercalciuria (Acute) Hyperuricosuria (Acute) Hypokalemia (Acute) Reducible right inguinal hernia (Acute) Medical History Chronic pain Concussion Per pt. stated he fell and slipped on ice Depression with anxiety Headache HLD (hyperlipidemia) Hypertension Insomnia Left ureteral stone Nephrolithiasis Nocturia Obesity Prediabetes Snoring Social History Smoking/Tobacco Use Status: Former Tobacco Use Quit Date: 10/21/08 Smoking risk assessment performed?: Yes Alcohol Intake: current Alcohol Intake frequency: a few times a month Alcohol type: beer Drug use: Daily Substance use type: marijuana Do you feel safe at home: Yes Do you feel safe in your relationship?: Yes Meds Allergies and Home Medications Allergies Allergy/AdvReac Type Severity Reaction Status Date / Time duloxetine [From Cymbalta] Allergy Severe Agitation Unverified 01/16/22 07:21 tamsulosin Allergy Intermediate Other (See Unverified 01/16/22 07:21 Comment) venom-wasp [Wasp Venom] Allergy Intermediate Other (See Unverified 01/16/22 07:21 Comment) gabapentin [From Neurontin] Allergy Mild Skin Rash Unverified 01/16/22 07:21 pregabalin [From Lyrica] Allergy Mild Agitation Unverified 01/16/22 07:21 naproxen [From Naprosyn] AdvReac Mild Other (See Unverified 01/16/22 07:21 Comment) amitryptiline Allergy Intermediate Agitation Uncoded 01/16/22 07:21 fentanyl Allergy Intermediate hallucinati Uncoded 01/16/22 07:21 ons Home Medications Medication Instructions Recorded Confirmed Type oxycodone 10 mg tablet,extended 10 mg PO BID 11/29/14 01/16/22 History release,12 hr (OxyContin) amlodipine 10 mg tablet 10 mg PO DAILY 10/05/21 01/16/22 History calcium carb 333 mg-vit D3 133 1 tab PO DAILY 10/05/21 01/16/22 History unit-mag ox 133 mg-zinc oxide 5 mg tab escitalopram oxalate 10 mg tablet 10 mg PO DAILY 10/05/21 01/16/22 History niacin 500 mg capsule 500 mg PO DAILY 10/05/21 01/16/22 History omega 3 650 mg-dha 240 mg-epa 360 1 cap PO DAILY 10/05/21 01/15/22 History mg-fish oil 1,000 mg capsule del rel turmeric 400 mg capsule 400 mg PO BID 10/05/21 01/16/22 History allopurinol 300 mg tablet 300 mg PO DAILY #90 tab 11/17/21 01/16/22 Rx Exam Const General: no acute distress Orientation: alert HENMT Head: normal to inspection Ears: external ears normal General nose exam: external nose normal Mouth: moist mucous membranes Eyes General: appearance normal, both eyes and all related structures Neck Neck: normal visual inspection Resp Effort & Inspection: normal respiratory effort and able to speak in complete sentences Cardio Rate: regular rate GI Palpation: soft and tender Other: large right inguinal hernia. umbilical hernia and left inguinal hernia. These do not bother the pt. Results Last Vital Signs Temp 36.4 C L 01/16/22 07:29 Pulse 67 01/16/22 07:29 Resp 16 01/16/22 07:29 BP 125/91 H 01/16/22 07:29 Pulse Ox 97 01/16/22 07:29
[2022-01-16] MEDS: ceFAZolin 2 GM/50 ML BAG IVPB (09:20)
--- NOTE | 2022-01-16 09:55 | W.ANESNERVE ---
Nerve Block Single Injection Procedure Date and Time Date Performed: 01/16/22 Procedure Start: 09:30 Location Where Procedure Performed Procedure Location: Operating Room Procedure Stop: 09:40 Reason Performed: Postoperative Analgesia Requesting Provider: Tomasa Jefferson Timeout Performed Timeout Performed: Yes Monitoring Used ECG, Blood Pressure, SpO2 and ETCO2 Sterility Sterility: Hand Hygiene, Surgical Cap, Surgical Mask, Sterile Gloves, Eye Protection and Chlorhexidine Sedation Given During Procedure Sedation Given (Indicate Dose Given): No Sedation given Patient Mental Status Patient Mental Status: Sedated or Ventilated without meaningful communication Nerve Block 1st Nerve Block: Laterality: Right Block Type: TAP Unilateral Needle / Catheter Used: 120mm SonoPlex II Local Anesthetic Bolus (Indicate Dose Given): Injected in 3-5ml increments after negative blood aspiration, Blood noted on aspiration (Upon aspiration after 13 mL of total volume administered, positive scant blood return. Needed withdrawn and partial block completed.), Bupivacaine 0.25% Dose:: 7ml and Exparel Dose:: 5cc Additives (Indicate Dose Given): None Ultrasound: Sterile probe cover and gel used Ultrasound Image Saved?: Yes Nerve Stimulator: Not Used Paresthesia: None Procedure Tolerated: No Complications Procedure Outcome: Successful Performed By: Nataliia Shen Supervised By: Rosemary Page
[2022-01-16] MEDS: Bupivacaine LIPOSOME/PF 133 MG/10 ML VIAL IJ (10:35)
[2022-01-16] MEDS: Bupivacaine 0.25% Pres-Free 30 ML VIAL (10:36)
--- NOTE | 2022-01-16 11:55 | W.ANESPOSTOP ---
Postoperative Evaluation Date, Time and Location Date Performed: 01/16/22 Time Performed: 11:55 Patient Location: PACU Vital Signs Most Recent Imported Vital Signs: Most Recent Vital Signs Temp Pulse Resp BP Pulse Ox 36.1 C L 65 18 116/82 95 01/16/22 11:50 01/16/22 11:50 01/16/22 11:50 01/16/22 11:50 01/16/22 11:50 Pain Score Most Recent Pain Score: Most Recent Pain Score Pain Level 0 01/16/22 11:50 Assessment Mental Status: Awake (Alert & Oriented to Patient Baseline) Airway and Respiratory Function: Patent airway with normal (patient baseline) respiratory exam Cardiovascular Function: Hemodynamically Stable Hydration Status: Adequately Hydrated Nausea & Vomiting: No Nausea or Vomiting Pain: Pain is tolerable per patient Peripheral Nerve Block: Regional nerve block not resolved at time of post operative discharge
[2022-01-16] MEDS: traMADol 50 MG TAB PO (12:48)
== END 2022-01-16 13:41 | disposition home or self-care (01) ==
PROVIDERS: PCP Internal Medicine; Visit Provider Surgery
PROC: (CPT 49505; principal; 2022-01-16 08:30)
DX: K40.90 Unilateral inguinal hernia, without obstruction or gangrene, not specified as recurrent (principal); E66.9 Obesity, unspecified; Z68.36 Body mass index [BMI] 36.0-36.9, adult; I10 Essential (primary) hypertension; E78.5 Hyperlipidemia, unspecified
CPT/HCPCS: 49505; 76942; C1781; J0690; J1100; J1885; J2250; J2370; J2405

== ENCOUNTER 2022-02-05 02:53 | Outpatient (CLI) | payer MEDICAID, SELFPAY ==
[2022-02-05 14:14] LABS: Anion Gap 8.8 mmol/L (3-11); BUN 22 mg/dL (7-18); CO2 27.2 mmol/L (21.0-32.0); CREATININE 1.1 mg/dL (0.70-1.30); Calcium 9.1 mg/dL (8.5-10.1); Chloride 104 mmol/L (98-107); Glucose 142 mg/dL (74-106); Potassium 3.7 mmol/L (3.5-5.1); Sodium 140 mmol/L (136-145); TSH (W/Ref FT4) 2.94 uIU/mL (0.36-3.74); Vitamin B12 730 pg/mL (193-986)
== END 2022-02-05 02:54 | disposition home or self-care (01) ==
LOC: LBO 02:53
PROVIDERS: PCP Internal Medicine; Visit Provider Urology
DX: I10 Essential (primary) hypertension (principal); G62.9 Polyneuropathy, unspecified
CPT/HCPCS: 36415; 80048; 82607; 84132; 84443

== ENCOUNTER 2022-02-08 12:09 | Outpatient (REF) | payer MEDICAID, SELFPAY ==
[2022-02-08 11:58] LABS: Creatinine,24hr Ur 2.25 g/24hr (0.95-2.49); Creatinine,Urine 77.64 mg/dL; Total Volume 2900 ml
[2022-02-09 09:28] LABS: Timed Urine Volume 2900 mL; Uric Acid Urine 23.1 mg/dL (See Note); Uric Acid Urine 24hr 670 mg/24hrs (250-750)
[2022-02-09 09:40] LABS: Calcium Urine 24 hr 580 mg/24hrs (100-300); Timed Urine Volume 2900 mL
== END 2022-02-08 12:10 | disposition home or self-care (01) ==
LOC: LBN 12:09
PROVIDERS: PCP Internal Medicine; Visit Provider Urology
DX: R82.994 Hypercalciuria (principal); R82.993 Hyperuricosuria
CPT/HCPCS: 81050; 82340; 82570; 84560

== ENCOUNTER 2022-08-07 16:20 | Outpatient (REF) | payer MEDICAID, SELFPAY ==
[2022-08-07 17:51] LABS: PSA, Screening <0.1 ng/mL (<=3.5)
== END 2022-08-07 16:21 | disposition home or self-care (01) ==
LOC: LBN 16:20
PROVIDERS: PCP Internal Medicine; Visit Provider Urology
DX: Z12.5 Encounter for screening for malignant neoplasm of prostate (principal)
CPT/HCPCS: 84153

== ENCOUNTER 2022-10-18 13:12 | Outpatient (REF) | payer MEDICAID, SELFPAY ==
[2022-10-18 14:46] LABS: Calculated LDL 153 mg/dL (<100); Cholesterol 213 mg/dL (<200); HDL Cholesterol 42 mg/dL (40-60); Triglyceride 93 mg/dL (<150)
== END 2022-10-18 13:13 | disposition home or self-care (01) ==
LOC: NCHCN 13:12
PROVIDERS: PCP Internal Medicine; Visit Provider Internal Medicine
DX: E78.5 Hyperlipidemia, unspecified (principal)
CPT/HCPCS: 80061

== ENCOUNTER 2023-04-03 10:07 | Outpatient (REF) | payer MEDICAID, SELFPAY ==
[2023-04-03 20:34] LABS: Calculated LDL 139 mg/dL (<100); Cholesterol 193 mg/dL (<200); HDL Cholesterol 40 mg/dL (40-60); Triglyceride 74 mg/dL (<150)
== END 2023-04-03 10:08 | disposition home or self-care (01) ==
LOC: NCHCN 10:07
PROVIDERS: PCP Internal Medicine; Visit Provider Internal Medicine
DX: E78.5 Hyperlipidemia, unspecified (principal); I10 Essential (primary) hypertension
CPT/HCPCS: 80061

== ENCOUNTER 2023-06-20 09:46 | Outpatient (REF) | payer MEDICAID, SELFPAY ==
[2023-06-20 15:02] LABS: ALT 31 U/L (16-63); AST 24 U/L (15-37); Albumin 3.7 g/dL (3.4-5.0); Alkaline Phosphatase 75 U/L (46-116); Anion Gap 8.6 mmol/L (3-11); BUN 20 mg/dL (7-18); Bilirubin, Total 0.6 mg/dL (0.2-1.0); CO2 26.4 mmol/L (21.0-32.0); Calcium 8.5 mg/dL (8.5-10.1); Chloride 103 mmol/L (98-107); Estimated GFR 87.78 (mL/min/1.73m2); Glucose 118 mg/dL (74-106); Potassium 3.8 mmol/L (3.5-5.1); Sodium 138 mmol/L (136-145); Total Protein 7.2 g/dL (6.4-8.2)
[2023-06-20 15:45] LABS: Hemoglobin A1C 5.6 % (<5.7)
== END 2023-06-20 09:47 | disposition home or self-care (01) ==
LOC: NCHCN 09:46
PROVIDERS: PCP Internal Medicine; Visit Provider Internal Medicine
DX: I10 Essential (primary) hypertension (principal); R73.03 Prediabetes
CPT/HCPCS: 80053; 83036

== ENCOUNTER 2023-09-10 03:03 | Outpatient (CLI) | payer OTHER, SELFPAY ==
--- OUTSIDE RECORDS SUMMARY | 2023-09-10 03:04 | XMS_ITS | CCD ---
Author Name Unknown Address [address] [place] [address] [id number] Organization Unknown Address [address] [place] [address] [id number] Care Team Providers Care Parimutuel Clerk Name Role Phone ZAIDA MARSHALL Attending Physician [id number] [phone] ZAIDA MARSHALL Rounding (Secondary) Physicia n [phone] Vital Signs Unknown or Not Available. Allergies Unknown or Not Available. Procedures Unknown or Not Available. History of Immunizations Unknown or Not Available. Problems Unknown or Not Available. Results Unknown or Not Available. Active Medications Unknown or Not Available. Medications Administered During Visit Unknown or Not Available. Encounters Unknown or Not Available. Social History Smoking Status Code Start Date End Date Former smoker [id number] Patient Decision Aids Unknown or Not Available. Discharge Instructions You were admitted to [facility] on 08/22/2023 00:00 You were discharged from [facility] on 08/22/2023 07:42 Should you have any questions prior to discharge, please contact a member of your healthcare team. If you have left the hospital and have any questions, please contact your primary care physician. Chief Complaint and Reason For Visit Unknown or Not Available. Function Status Unknown or Not Available. Plan of Care Unknown or Not Available. Referral/Transition of Care Unknown or Not Available.
[2023-09-10 19:05] LABS: PSA, Screening 0.1 ng/mL (<=3.5)
== END 2023-09-10 03:04 | disposition home or self-care (01) ==
LOC: LBO 03:03
PROVIDERS: PCP Internal Medicine; Visit Provider Urology
DX: R35.1 Nocturia (principal)
CPT/HCPCS: 36415; 84153

== ENCOUNTER → 2023-09-27 11:02 | Outpatient (BNVA) | payer MEDICARE, SELFPAY | PROVIDERS: PCP Internal Medicine; Referring Provider Internal Medicine; Visit Provider Urology | DX: R30.0 Dysuria (principal); N20.0 Calculus of kidney; R82.993 Hyperuricosuria; R82.994 Hypercalciuria; N20.1 Calculus of ureter | CPT/HCPCS: 81002; 99213 ==

== ENCOUNTER 2024-06-12 08:12 | Outpatient (REF) | payer MEDICARE, SELFPAY ==
[2024-06-12 14:59] LABS: HCT 45.3 % (40.0-50.0); HGB 16.1 g/dL (13.5-17.5); MCH 31.6 pg (27.0-33.0); MCHC 35.5 % (32.0-36.0); MCV 89 fL (80-95); MPV 11.2 fL (8.0-11.0); Platelet Count 196 10^3/uL (130-400); RBC 5.09 10^6/uL (4.36-5.78); RDW 12.6 % (11.8-14.1); RDW-SD 41.5 fL; WBC 6.19 10^3/uL (4.4-10.8)
[2024-06-12 15:12] LABS: Hemoglobin A1C 5.6 % (<5.7)
[2024-06-12 15:19] LABS: ALT 45 U/L (16-63); AST 26 U/L (15-37); Albumin 3.8 g/dL (3.4-5.0); Alkaline Phosphatase 82 U/L (46-116); Anion Gap 8.8 mmol/L (3-11); BUN 13 mg/dL (7-18); Bilirubin, Total 0.69 mg/dL (0.2-1.0); CO2 27.2 mmol/L (21.0-32.0); CREATININE 0.9 mg/dL (0.70-1.30); Calcium 8.7 mg/dL (8.5-10.1); Calculated LDL 108 mg/dL (<100); Chloride 105 mmol/L (98-107); Cholesterol 175 mg/dL (<200); Estimated GFR 99.62 (mL/min/1.73m2); Glucose 120 mg/dL (74-106); HDL Cholesterol 48 mg/dL (40-60); Potassium 3.5 mmol/L (3.5-5.1); Sodium 141 mmol/L (136-145); Total Protein 7.2 g/dL (6.4-8.2); Triglyceride 95 mg/dL (<150)
== END 2024-06-12 08:13 | disposition home or self-care (01) ==
LOC: NCHCN 08:12
PROVIDERS: PCP Internal Medicine; Visit Provider Internal Medicine
DX: I10 Essential (primary) hypertension (principal); R73.03 Prediabetes
CPT/HCPCS: 80053; 80061; 85027; 83036

== ENCOUNTER → 2024-10-12 14:54 | Outpatient (BNVA) | payer MEDICARE, SELFPAY | PROVIDERS: PCP Internal Medicine; Visit Provider Urology | DX: N20.0 Calculus of kidney (principal); R35.1 Nocturia | CPT/HCPCS: 81003; 99213 ==

== ENCOUNTER 2025-06-09 19:28 | Outpatient (REF) | payer MEDICARE, SELFPAY ==
[2025-06-09 22:08] LABS: HCT 44.0 % (40.0-50.0); HGB 15.3 g/dL (13.5-17.5); MCH 30.9 pg (27.0-33.0); MCHC 34.8 % (32.0-36.0); MCV 89 fL (80-95); MPV 11.3 fL (8.0-11.0); Platelet Count 187 10^3/uL (130-400); RBC 4.95 10^6/uL (4.36-5.78); RDW 12.5 % (11.8-14.1); RDW-SD 40.6 fL; WBC 7.61 10^3/uL (4.4-10.8)
[2025-06-09 22:24] LABS: ALT 52 U/L (16-63); AST 35 U/L (15-37); Albumin 4.0 g/dL (3.4-5.0); Alkaline Phosphatase 84 U/L (46-116); Anion Gap 10.1 mmol/L (3-11); BUN 21 mg/dL (7-18); Bilirubin, Total 0.6 mg/dL (0.2-1.0); CO2 29.9 mmol/L (21.0-32.0); Calcium 9.2 mg/dL (8.5-10.1); Calculated LDL 120 mg/dL (<100); Chloride 102 mmol/L (98-107); Cholesterol 190 mg/dL (<200); Estimated GFR 87.24 (mL/min/1.73m2); Glucose 112 mg/dL (74-106); HDL Cholesterol 40 mg/dL (>or=40); Potassium 3.5 mmol/L (3.5-5.1); Sodium 142 mmol/L (136-145); Total Protein 7.4 g/dL (6.4-8.2); Triglyceride 154 mg/dL (<150)
[2025-06-09 22:40] LABS: Hemoglobin A1C 5.6 % (<5.7)
== END 2025-06-09 19:29 | disposition home or self-care (01) ==
LOC: NCHCN 19:28
PROVIDERS: PCP Internal Medicine; Visit Provider Internal Medicine
DX: I10 Essential (primary) hypertension (principal); R73.03 Prediabetes; G47.33 Obstructive sleep apnea (adult) (pediatric)
CPT/HCPCS: 80053; 80061; 85027; 83036

== ENCOUNTER → 2025-10-12 13:40 | Outpatient (BNVA) | payer MEDICARE, SELFPAY | PROVIDERS: PCP Internal Medicine; Visit Provider Urology | DX: N20.0 Calculus of kidney (principal) | CPT/HCPCS: 99213; 81002 ==